=== PATIENT | male | born 1960 | race Caucasian/White ===

== ENCOUNTER 2016-06-26 16:06 | Emergency (ER) | payer MEDICARE | END 2016-06-26 18:50 | disposition home or self-care (01) | LOC: ER1 16:06 | DX: S46.912A Strain of unspecified muscle, fascia and tendon at shoulder and upper arm level, left arm, initial encounter (principal); S16.1XXA Strain of muscle, fascia and tendon at neck level, initial encounter; Z88.6 Allergy status to analgesic agent; Z88.2 Allergy status to sulfonamides; Z88.5 Allergy status to narcotic agent; V86.09XA Driver of other special all-terrain or other off-road motor vehicle injured in traffic accident, initial encounter | CPT/HCPCS: 70450; 71020; 72125; 73030; 99284 ==